=== PATIENT | male | born 1960 | race Caucasian/White ===

== ENCOUNTER 2021-07-24 10:43 | Emergency (ER) | payer OTHER, SELFPAY ==
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
[2021-07-24 11:01] VITALS: BP 151/92; PULSE 68; RESP 15; TEMP 36; O2SAT 98
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
[2021-07-24 15:45] VITALS: BP 142/86; PULSE 68; RESP 18; O2SAT 98
== END 2021-07-24 15:45 | disposition home or self-care (01) ==
PROVIDERS: Emergency Provider Emergency Medicine; PCP Family Medicine
DX: S39.92XA Unspecified injury of lower back, initial encounter (principal); M54.2 Cervicalgia; J44.9 Chronic obstructive pulmonary disease, unspecified; F17.210 Nicotine dependence, cigarettes, uncomplicated; Z98.1 Arthrodesis status; M47.816 Spondylosis without myelopathy or radiculopathy, lumbar region; V49.40XA Driver injured in collision with unspecified motor vehicles in traffic accident, initial encounter
CPT/HCPCS: 72125; 72131; 99284; L0140